=== PATIENT | female | born 1975 | race Caucasian/White ===

== ENCOUNTER 2023-06-12 07:28 | Day surgery (SDC) | payer BC ==
[~2023-06-12 07:28] MED LIST: Midazolam 1 MG/ML 2 ML SDV ONE; Propofol 200 MG/20 ML SDV ONE; fentaNYL 100 MCG/2 ML SDV ONE
[2023-06-12] MEDS ORDERED: Lactated Ringers 1,000 ML IV SCH (08:15)
[2023-06-12] MEDS ORDERED: Lactated Ringers 1,000 ML ONE (09:40)
== END 2023-06-12 10:40 | disposition home or self-care (01) ==
LOC: JP.SDS 07:28
PROVIDERS: ATTEND Student in an Organized Health Care Education/Training Program
DX: Z12.11 Encounter for screening for malignant neoplasm of colon (principal); D12.3 Benign neoplasm of transverse colon; K57.30 Diverticulosis of large intestine without perforation or abscess without bleeding
CPT/HCPCS: 45380; 81025; 88305; J2250; J2704; J3010; J7120